=== PATIENT | female | born 1980 | race African-American/Black ===

== ENCOUNTER 2017-03-31 16:02 | Emergency (ER) | payer BC, SELFPAY ==
[2017-03-31] MEDS ORDERED: Ketorolac Tromethamine 60 MG/2 ML VIAL ONE (16:26)
== END 2017-03-31 16:54 | disposition home or self-care (01) ==
LOC: NAV ERS 16:02
DX: S29.011A Strain of muscle and tendon of front wall of thorax, initial encounter (principal); I10 Essential (primary) hypertension; E11.9 Type 2 diabetes mellitus without complications; F17.210 Nicotine dependence, cigarettes, uncomplicated; Z79.84 Long term (current) use of oral hypoglycemic drugs; X50.0XXA Overexertion from strenuous movement or load, initial encounter
CPT/HCPCS: 93005; 96372; 99406; J1885

== ENCOUNTER 2018-03-21 19:23 | Emergency (ER) | payer BC ==
[2018-03-21] MEDS ORDERED: predniSONE 20 MG TAB ONE (20:02)
== END 2018-03-21 20:05 | disposition home or self-care (01) ==
LOC: NAV ERS 19:23
DX: L42 Pityriasis rosea (principal); E11.9 Type 2 diabetes mellitus without complications; F17.210 Nicotine dependence, cigarettes, uncomplicated; Z79.899 Other long term (current) drug therapy; Z79.4 Long term (current) use of insulin
CPT/HCPCS: 99282; J7506

== ENCOUNTER 2018-05-19 09:18 | Emergency (ER) | payer BC ==
--- NOTE | 2018-05-19 09:54 | RAD ---
FXR Finger(s) Rt Min 2 View History: [Laceration] Comparison: None. Findings: There is a soft tissue skin laceration along the medial aspect of the small finger proximal interphalangeal joint. Appears be a small flake of bone along the proximal phalanx head which may re flect a fracture. Impression: Soft tissue laceration along the medial aspect of the proximal interphalangeal joint smal l finger with possible linear fracture of the proximal phalanx head. A oblique view would be benefici al.
[2018-05-19] MEDS ORDERED: Ibuprofen 800 MG TAB ONE (10:21)
[2018-05-19] MEDS ORDERED: Lidocaine 1% w/Epinephrine 1:100K 30 ML VIAL ONE (10:26)
[2018-05-19] MEDS ORDERED: Lidocaine 1% (PF) 30 ML VIAL ONE ×2 (10:27→10:31)
--- NOTE | 2018-05-19 10:32 | RAD ---
FXR Finger(s) Rt Min 2 View History: [Injury] Comparison: Finger radiograph same day Findings: Similar appearance of the soft tissue laceration. No evidence for fracture. Impression: No evidence for fracture.
[2018-05-19] MEDS ORDERED: Bacitracin Zinc 1 Packet ONE (10:42)
== END 2018-05-19 10:55 | disposition home or self-care (01) ==
LOC: NAV ERS 09:18
DX: S61.216A Laceration without foreign body of right little finger without damage to nail, initial encounter (principal); E11.9 Type 2 diabetes mellitus without complications; F17.210 Nicotine dependence, cigarettes, uncomplicated; Z79.899 Other long term (current) drug therapy; Z79.4 Long term (current) use of insulin; W25.XXXA Contact with sharp glass, initial encounter
CPT/HCPCS: 12001; J2001

== ENCOUNTER 2018-05-27 13:39 | Emergency (ER) | payer BC | END 2018-05-27 14:08 | disposition home or self-care (01) | LOC: NAV ERS 13:39 | DX: S61.216D Laceration without foreign body of right little finger without damage to nail, subsequent encounter (principal); E11.9 Type 2 diabetes mellitus without complications; F17.210 Nicotine dependence, cigarettes, uncomplicated; Z79.82 Long term (current) use of aspirin; Z79.899 Other long term (current) drug therapy ==

== ENCOUNTER 2018-06-21 12:18 | Emergency (ER) | payer BC ==
[2018-06-21] MEDS ORDERED: Lidocaine 1% (PF) 30 ML VIAL ONE (12:34)
[2018-06-21] MEDS ORDERED: Sulfameth/Trimethoprim DS 800-160mg TAB ONE (12:57)
== END 2018-06-21 13:10 | disposition home or self-care (01) ==
LOC: NAV ERS 12:18
DX: L02.221 Furuncle of abdominal wall (principal); E11.9 Type 2 diabetes mellitus without complications; F17.210 Nicotine dependence, cigarettes, uncomplicated; Z79.899 Other long term (current) drug therapy; Z79.4 Long term (current) use of insulin; Z79.82 Long term (current) use of aspirin
CPT/HCPCS: 10060; 87070; 87077; 87186; 87205; J2001

== ENCOUNTER 2019-04-25 19:24 | Emergency (ER) | payer BC ==
--- NOTE | 2019-04-25 20:02 | RAD ---
Chest AP view INDICATION: Cough COMPARISON: April 16, 2011 FINDINGS: Lungs: The lungs are clear Cardiac silhouette: The cardiomediastinal silhouette appears within normal limits. Pulmonary vasculature: Normal Pleural spaces: No pleural effusion or pneumothorax is demonstrated. Upper abdomen: No abnormality seen. Osseous structures: No acute osseous abnormality. Additional findings: None. IMPRESSION: No acute cardiopulmonary abnormality.
== END 2019-04-25 20:30 | disposition home or self-care (01) ==
LOC: NAV ERS 19:24
DX: J42 Unspecified chronic bronchitis (principal); H65.93 Unspecified nonsuppurative otitis media, bilateral; E11.9 Type 2 diabetes mellitus without complications; F17.210 Nicotine dependence, cigarettes, uncomplicated; Z79.4 Long term (current) use of insulin; Z79.82 Long term (current) use of aspirin
CPT/HCPCS: 71045

== ENCOUNTER 2020-06-14 18:00 | Emergency (ER) | payer BC, SELFPAY ==
[2020-06-14] MEDS ORDERED: Ketorolac Tromethamine 30 MG/ML VIAL ONE (20:12)
== END 2020-06-14 20:35 | disposition home or self-care (01) ==
LOC: NAV ERS 18:00
DX: M25.511 Pain in right shoulder (principal); E11.9 Type 2 diabetes mellitus without complications; F17.210 Nicotine dependence, cigarettes, uncomplicated; Z79.82 Long term (current) use of aspirin; Z79.51 Long term (current) use of inhaled steroids; Z79.899 Other long term (current) drug therapy
CPT/HCPCS: 96372; J1885

== ENCOUNTER 2020-07-11 09:23 | Emergency (ER) | payer SELFPAY ==
[2020-07-11] MEDS ORDERED: Lidocaine 1% w/Epinephrine 1:100K 20 ML VIAL ONE (10:02)
[2020-07-11] MEDS ORDERED: Bacitracin 1 PK ONE (10:32)
== END 2020-07-11 10:45 | disposition home or self-care (01) ==
LOC: NAV ERS 09:23
DX: L02.214 Cutaneous abscess of groin (principal); E10.9 Type 1 diabetes mellitus without complications; F17.210 Nicotine dependence, cigarettes, uncomplicated; Z79.82 Long term (current) use of aspirin; Z79.899 Other long term (current) drug therapy
CPT/HCPCS: 10060; 87070; 87205

== ENCOUNTER 2021-02-28 12:00 | Emergency (ER) | payer SELFPAY ==
[2021-02-28] MEDS ORDERED: Ibuprofen 200 MG TAB ONE (12:58)
[2021-03-01 11:47] LABS: SARS-CoV-2 PCR by NAA DETECTED (NotDetected)
== END 2021-02-28 13:37 | disposition home or self-care (01) ==
LOC: NAV ERS 12:00
DX: U07.1 COVID-19 (principal); E10.9 Type 1 diabetes mellitus without complications; F17.210 Nicotine dependence, cigarettes, uncomplicated; Z79.82 Long term (current) use of aspirin; Z79.4 Long term (current) use of insulin
CPT/HCPCS: 87804; 99283; U0003; U0005

== ENCOUNTER 2021-03-08 12:40 | Emergency (ER) | payer SELFPAY ==
[2021-03-08] MEDS ORDERED: Lidocaine 1% (PF) 30 ML VIAL ONE (13:34)
[2021-03-08] MEDS ORDERED: Sulfameth/Trimethoprim DS 800-160mg TAB ONE (16:22)
[2021-03-08] MEDS ORDERED: Bacitracin 1 PK ONE (16:22)
== END 2021-03-08 16:39 | disposition home or self-care (01) ==
LOC: NAV ERS 12:40
DX: L03.011 Cellulitis of right finger (principal); E10.9 Type 1 diabetes mellitus without complications; F17.210 Nicotine dependence, cigarettes, uncomplicated; Z79.82 Long term (current) use of aspirin; Z79.899 Other long term (current) drug therapy
CPT/HCPCS: 10060; J2001

== ENCOUNTER 2021-05-25 12:30 | Emergency (ER) | payer SELFPAY ==
[2021-05-25 13:16] LABS: #Basophils 0.1 thou/uL (0.0-0.2); #Eosinphils 0.1 thou/uL (0.0-0.7); #Lymphocytes 2.8 thou/uL (1.20-3.40); #Monocytes 0.7 thou/uL (0.11-0.59); #Neutrophils 5.8 thou/uL (1.40-6.50); %Basophils 0.6 % (0.0-1.0); %Eosinophils 1.3 % (0.0-10.0); %Lymphocytes 29.9 % (21.0-51.0); %Monocytes 7.2 % (0.0-10.0); Hemoglobin 13.1 g/dL (12.0-16.0); Mean Corpuscular HGB CONC 30.5 g/dL (32.0-36.0); Mean Corpuscular Hemoglobin 31.4 pg (27.0-31.0); Mean Platelet Volume 7.4 fL (7.4-10.4); Platelet Count 356 thou/uL (130-400); RBC Distribution Width 12.6 % (11.5-14.5); Red Blood Cell (RBC) Count 4.18 mill/uL (4.20-5.40); White Blood Cell (WBC) Count 9.5 thou/uL (4.8-10.8)
[2021-05-25 13:41] LABS: ALT (SGPT) 18 U/L (8-55); AST (SGOT) 17 U/L (5-34); Albumin 3.8 g/dL (3.5-5.0); Alkaline Phosphatase 96 U/L (40-110); Anion Gap 14 mmol/L (10-20); BUN (Urea Nitrogen) 7 mg/dL (7.0-18.7); Bilirubin, Total 0.3 mg/dL (0.2-1.2); Calc. Creatinine Clearance 0 mL/min (70-130); Calcium 8.7 mg/dL (7.8-10.44); Carbon Dioxide 23 mmol/L (22-29); Chloride 101 mmol/L (98-107); Globulin 4.2 g/dL (2.4-3.5); Glucose 366 mg/dL (70-105); Potassium 3.8 mmol/L (3.5-5.1); Sodium 134 mmol/L (136-145)
[2021-05-25] MEDS ORDERED: Ibuprofen 800 MG TAB ONE (14:27)
== END 2021-05-25 14:33 | disposition home or self-care (01) ==
LOC: NAV ERS 12:30
DX: S46.811A Strain of other muscles, fascia and tendons at shoulder and upper arm level, right arm, initial encounter (principal); J06.9 Acute upper respiratory infection, unspecified; E10.9 Type 1 diabetes mellitus without complications; F17.210 Nicotine dependence, cigarettes, uncomplicated; Z79.84 Long term (current) use of oral hypoglycemic drugs
CPT/HCPCS: 71046; 80053; 84484; 85025; 85379; 93005; 94760

== ENCOUNTER 2023-07-23 19:53 | Emergency (ER) | payer BC | END 2023-07-23 21:45 | disposition home or self-care (01) | LOC: NAV ERS 19:53 | DX: S70.02XA Contusion of left hip, initial encounter (principal); E11.9 Type 2 diabetes mellitus without complications; I10 Essential (primary) hypertension; Z79.4 Long term (current) use of insulin; Z87.891 Personal history of nicotine dependence; W18.30XA Fall on same level, unspecified, initial encounter | CPT/HCPCS: 72170 ==

== ENCOUNTER 2023-08-23 12:25 | Outpatient (CLI) | payer BC | END 2023-08-23 12:26 | disposition home or self-care (01) | LOC: NAV RAD 12:25 | PROVIDERS: ATTEND Nurse Practitioner Family | DX: M25.552 Pain in left hip (principal); M25.562 Pain in left knee; M17.12 Unilateral primary osteoarthritis, left knee; M16.12 Unilateral primary osteoarthritis, left hip; I67.9 Cerebrovascular disease, unspecified | CPT/HCPCS: 72170 ==

== ENCOUNTER 2024-11-22 11:14 | Emergency (ER) | payer OTHER ==
[2024-11-22] MEDS ORDERED: Ketorolac Tromethamine 30 MG (1 mL) VIAL ONE (11:56)
[2024-11-22 12:17] LABS: PTT 25.1 sec (22.9-36.1)
[2024-11-22 12:18] LABS: INR-International Normal Ratio 1.1; Prothrombin Time 13.9 sec (12.0-14.7)
[2024-11-22 12:20] LABS: D-Dimer Test 0.46 mcg/mL (0.27-0.43)
[2024-11-22 12:25] LABS: ALT (SGPT) 10 U/L (Less than 34); AST (SGOT) 19 U/L (11-34); Albumin 3.2 g/dL (3.1-4.5); Alkaline Phosphatase 122 U/L (40-110); Anion Gap 14 mmol/L (10-20); BUN (Urea Nitrogen) 9 mg/dL (7.0-18.7); Bilirubin, Total 0.2 mg/dL (0.3-1.2); CK (CPK) 139 U/L (29-168); Calc. Creatinine Clearance 0 mL/min (70-130); Calcium 8.3 mg/dL (7.8-10.44); Carbon Dioxide 22 mmol/L (22-29); Chloride 101 mmol/L (98-107); Globulin 4.3 g/dL (2.4-3.5); Glucose 313 mg/dL (70-105); Potassium 3.9 mmol/L (3.5-5.1); Sodium 133 mmol/L (136-145)
[2024-11-22 12:31] LABS: #Basophils 0.1 thou/uL (0.0-0.2); #Eosinophils 0.1 thou/uL (0.0-0.7); #Lymphocytes 1.9 thou/uL (1.20-3.40); #Monocytes 0.5 thou/uL (0.11-0.59); #Neutrophils 5.4 thou/uL (1.40-6.50); %Basophils 1.0 % (0.0-1.0); %Eosinophils 1.1 % (0.0-10.0); %Lymphocytes 24.3 % (21.0-51.0); %Monocytes 6.1 % (0.0-10.0); %Neutrophils 67.5 % (42.0-75.0); Hematocrit 37.7 % (36.0-47.0); Hemoglobin 11.4 g/dL (12.0-16.0); Mean Corpuscular Hemoglobin 21.9 pg (27.0-31.0); Mean Corpuscular Volume 72.8 fl (78.0-98.0); Platelet Count 283 10x3/uL (130-400); Red Blood Cell (RBC) Count 5.19 mill/uL (4.20-5.40); White Blood Cell (WBC) Count 7.9 10x3/uL (4.8-10.8)
== END 2024-11-22 12:55 | disposition short-term general hospital (02) ==
LOC: NAV ERS 11:14
DX: M79.662 Pain in left lower leg (principal); R79.1 Abnormal coagulation profile; I10 Essential (primary) hypertension; E11.9 Type 2 diabetes mellitus without complications; E66.9 Obesity, unspecified; K21.9 Gastro-esophageal reflux disease without esophagitis; F17.200 Nicotine dependence, unspecified, uncomplicated; Z79.4 Long term (current) use of insulin; Z79.899 Other long term (current) drug therapy
CPT/HCPCS: 80053; 82550; 85025; 85379; 85610; 85730; 96374; J1885